=== PATIENT | female | born 1990 | race Caucasian/White ===

== ENCOUNTER 2016-08-24 18:31 | Emergency (ER) | payer OTHER ==
[~2016-08-24] VITALS: Ht 165.1 cm; Wt 67.6 kg
--- NOTE | 2016-08-24 19:14 | ED SKIN/ALLERGY COMPLAINT ---
History of Present Illness General Chief Complaint: Allergy Symptoms Stated Complaint: ANTIBIOTIC REACTION Source: patient Exam Limitations: no limitations Vital Signs & Intake/Output Vital Signs & Intake/Output Vital Signs Date Time Temp Pulse Resp B/P Pulse O2 O2 Flow FiO2 Ox Delivery Rate 08/24 2038 98.0 76 18 98/61 97 08/24 184 97.8 76 18 113/78 96 Room Air Allergies Coded Allergies: sulfamethoxazole (From BACTRIM) (Intermediate, RASH 08/24/16) trimethoprim (From BACTRIM) (Intermediate, RASH 08/24/16) Penicillins (UNKNOWN 08/24/16) Reconcile Medications Famotidine (Pepcid) 20 MG TABLET 1 TAB PO BID ALLERGIC REACTION Prednisone 20 MG TABLET 2 TAB PO D allergic reaction Triage Note: PT STATES THAT SHE WAS DIAGNOSED WITH EAR INFECTION YESTERDAY AND COULD NOT AFFORD Z-PACK , BUT THAT SHE COULD NOT AFFORD THE ABT, PT WENT HOME AND TOOK HER LEFT OVER BACTRIM, USED OTC NASAL SPRAY AND EARACHE DROPS.PT STATES THAT SHE WAS FINE ALL DAY AND THEN AROUND 1500 SHE STARTED TO FEEL ITCHY AND NOTED A FINE RASH ALL OVER HER BODY. DENIES SOB. Triage Nurses Notes Reviewed? yes Onset: Abrupt Duration: since 3 pm Timing: single episode today Severity: moderate Location: extremities Possible Factors: BACTRIM FIRST DOSE Associated Symptoms: ERYTHEMA, ITCHING : No Patient currently breastfeeds: No HPI: 25 year old female who presents with rash to both arms after first dose of bactrim. She was diagnosed with left otitis media and did not want to pay for the azithromycin out of pocked so she decided to to take some bactrim that she had lying at home. No difficulty swallowing or breathing. Past History Travel History Traveled to [place] past 21 day No Medical History Any Pertinent Medical History? 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 No Review of Systems Review of Systems Constitutional: Denies: chills, fever. EENTM: Denies: throat pain. Respiratory: Denies: short of breath. Cardiovascular: Denies: chest pain, palpitations. GI: Reports: no symptoms. Genitourinary: Reports: no symptoms. Musculoskeletal: Reports: no symptoms. Skin: Reports: jaundice, rash. Neurological/Psychological: Reports: no symptoms. Hematologic/Endocrine: Denies: bruising, bleeding, polyuria, polydipsia. Immunologic/Allergic: Denies: splenectomy. All Other Systems: Reviewed and Negative Physical Exam Physical Exam General Appearance: well developed/nourished, awake, mild distress Head: atraumatic Eyes: Bilateral: PERRL, EOMI. Ears, Nose, Throat: normal pharynx, normal ENT inspection, hearing grossly normal Neck: normal inspection, supple Respiratory: normal breath sounds Cardiovascular: regular rate/rhythm Gastrointestinal: soft, non-tender Back: normal inspection Extremities: normal inspection, normal range of motion, no edema Neurologic/Psych: awake, alert, oriented x 3, normal mood/affect Skin: intact, normal color, warm/dry Skin Problem Location: upper extremities Skin Problem Character: erythema, rash Lymphatic: no anterior cervical digna Progress Differential Diagnosis: abscess/cellulitis, allergic reaction Plan of Care: Current Medications Sig/Stacie Start time Last Medication Dose Stop Time Status Admin Diphenhydramine HCl 25 MG ONCE ONE 08/24 1944 UNVr (Benadryl) 08/24 1945 Famotidine 20 MG ONCE ONE 08/24 1944 UNVr (Pepcid) 08/24 1945 Prednisone 60 MG ONCE ONE 08/24 1944 UNVr 08/24 1945 PREDNISONE, BENADRYL, PEPCID ORDERED. 20:40 PATIENT FEELING BETTER. LEFT EAR SOME SOME MILD ERYTHEMA IN THE CANAL, BUT NO VIRGIL EVIDENCE OF LEFT OTITIS MEDIA. (YG MCPHERSON,SPENSER) Departure Departure Time of Disposition: 2040 Disposition: HOME OR SELF CARE Condition: Stable Clinical Impression Primary Impression: Allergic reaction caused by a drug Referrals: LUKE MCPHERSON,ALVARO Ceron (PCP/Family) Additional Instructions: Discontinue the Bactrim. Continue the eardrops as directed. Take the prednisone and Pepcid as directed. Your prescriptions are at your pharmacy. Please follow-up with your doctor in 2-3 days' time. Return to the ER for any changing or worsening symptoms. Departure Forms: Customer Survey General Discharge Information Prescriptions: Current Visit Scripts Prednisone 2 TAB PO D #6 TAB Famotidine (Pepcid) 1 TAB PO BID #10 TAB
[2016-08-24 20:39] VITALS: BP 98/61
[2016-08-24] MEDS ORDERED: PEPCID20 M1 PO (20:42)
[2016-08-24] MEDS ORDERED: PREDNISONE20 M1 PO (20:42)
== END 2016-08-24 21:01 ==
LOC: ERH 18:31
DX: T37.0X5A Adverse effect of sulfonamides, initial encounter (principal)

== ENCOUNTER 2017-06-27 15:58 | Emergency (ER) | payer OTHER ==
[~2017-06-27 15:58] MED LIST: PEPCID20 M1 PO; PREDNISONE20 M1 PO
--- NOTE | 2017-06-27 17:25 | RADIOLOGY REPORT ---
EXAMINATION: RIGHT FOOT AND ANKLE 6 VIEWS CLINICAL INFORMATION: Pain after fall. COMPARISON: None. TECHNIQUE: AP, lateral, oblique views of the right foot were obtained in addition to AP, lateral and oblique views of the right ankle. FINDINGS: There are no fractures or dislocations. There is no significant soft tissue swelling. No ankle joint effusion is identified. IMPRESSION: Unremarkable right foot and ankle radiographs.
--- NOTE | 2017-06-27 17:26 | RADIOLOGY REPORT ---
EXAMINATION: XR ELBOW, RIGHT CLINICAL INFORMATION: Pain after fall COMPARISON: None TECHNIQUE: Four views of the right elbow. FINDINGS: There is no evidence of fracture or dislocation. No evidence of elbow joint effusion. The joint spaces are well-maintained and the cortical surfaces are smooth. The soft tissues appear unremarkable. IMPRESSION: Normal right elbow.
--- NOTE | 2017-06-27 17:44 | ED MVC/FALL/TRAUMA COMPLAINT ---
History of Present Illness General Chief Complaint: Foot or Ankle Injury Stated Complaint: BIBA R ARM/R ANKLE IMJURY Source: patient, friend Exam Limitations: no limitations Vital Signs & Intake/Output Vital Signs & Intake/Output Vital Signs Date Time Temp Pulse Resp B/P B/P Pulse O2 O2 Flow FiO2 Mean Ox Delivery Rate 06/27 1753 98.3 69 20 126/61 98 06/27 1606 88 20 115/80 97 ED Intake and Output 06/28 0000 06/27 1200 Intake Total 0 Output Total Balance 0 Intake, Oral 0 Allergies Coded Allergies: sulfamethoxazole (From BACTRIM) (Intermediate, RASH 08/24/16) trimethoprim (From BACTRIM) (Intermediate, RASH 08/24/16) Penicillins (UNKNOWN 08/24/16) Reconcile Medications Famotidine (Pepcid) 20 MG TABLET 1 TAB PO BID ALLERGIC REACTION Ibuprofen 800 MG TABLET 1 TAB PO TID PRN PAIN Methocarbamol (Robaxin-750) 750 MG TABLET 1 TAB PO TID PRN PAIN Prednisone 20 MG TABLET 2 TAB PO D allergic reaction Triage Note: PER PT SLIPPED AND FELL IN PUDDLE WHILE ON CELL PHONE CO PAIN TO RT ANKLE AND FOOT AND RT ELBOW PAIN LMP 06/19. CO TINGLING TO RT 5TH DIGIT, NO LOC Triage Nurses Notes Reviewed? yes Onset: Abrupt Duration: hour(s): (1), constant, continues in ED Timing: single episode today Severity: moderate, severe Severity Numbers: 8 Injuries/Fall Location: upper extremity, lower extremity Method of Injury: fall Loss of Consciousness: no loss of consciousness No Modifying Factors: none LMP (ages 10-50): unknown : No Patient currently breastfeeds: No HPI: 26-year-old female with no past medical history present for evaluation after a fall. Patient's history was walking looking at her cell phone when she accidentally walked into a puddle slipped and fell. Patient states that she landed on her right elbow and twisted her right ankle. There is no head strike or loss of consciousness. No hip pain and knee pain back pain or neck pain. She states that she was able to stand up with help and walk with a limp. The pain is located in the lateral aspect of the foot and ankle and is worse with weightbearing and movement. She rates pain as needed attention not taking any medicine. She also reports pain in the right elbow that is worse with movement. No wrist pain or shoulder pain. She does report some tingling in the right fifth finger. No chest pain or abdominal pain. No other injuries. No blood thinners. Past History Travel History Traveled to [place] past 21 day No Medical History Any Pertinent Medical History? 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 No Review of Systems Review of Systems Constitutional: Reports: no symptoms. Eyes: Reports: no symptoms. Ears, Nose, Throat, Mouth: Reports: no symptoms. Respiratory: Reports: no symptoms. Cardiovascular: Reports: no symptoms. Gastrointestinal/Abdominal: Reports: no symptoms. Genitourinary: Reports: no symptoms. Musculoskeletal: Reports: see HPI, joint pain, muscle pain, muscle stiffness. Skin: Reports: no symptoms. Neurological/Psychological: Reports: no symptoms. All Other Systems: Reviewed and Negative Physical Exam Physical Exam General Appearance: well developed/nourished, no apparent distress, alert, awake Head: atraumatic, normal appearance Eyes: Bilateral: normal appearance, PERRL, EOMI, normal inspection. Ears, Nose, Throat, Mouth: hearing grossly normal, moist mucous membrane Neck: normal inspection, supple, full range of motion, no midline tenderness Respiratory: normal breath sounds, chest non-tender, no respiratory distress, lungs clear Cardiovascular: regular rate/rhythm, normal peripheral pulses Peripheral Pulses: 2+ radial (R), 2+ radial (L), 2+ dorsalis pedis (R), 2+ dorsalis pedis (L) Gastrointestinal: soft, non-tender Back: normal inspection, normal range of motion, no vertebral tenderness, LUMBAR PARASPINOUS MUSCLES TENDER TO PALPATION BILATERALLY. nO MIDLINE PAIN NO STEP- OFFS OR DEFORMITIES NOTED BRUISING SWELLING OR ABRASIONS Extremities: PAIN WITH PALPATION OF THE OLECRANON PROCESS ON THE RIGHT SIDE. nO BRUISING SWELLING OR ABRASIONS. nO CREPITUS. rANGE OF MOTION OF THE ELBOW IS REDUCED DUE TO PAIN.RANGE OF MOTION OF THE RIGHT SHOULDER AND RIGHT WRIST. nO SNUFFBOX TENDERNESS. char filter tank tender head STRENGTH 5 OUT OF 5 NEUROVASCULAR SUPPLY IS INTACT TO THE RIGHT UPPER EXTREMITY pAIN WITH PALPATION OF THE RIGHT LATERAL MALLEOLUS AND RIGHT FIFTH METATARSAL. nO BRUISING SWELLING OR ABRASIONS RANGE OF MOTION OF THE FOOT AND ANKLE REDUCED DUE TO PAIN. nEUROVASCULAR SUPPLY IS INTACT. FULL RANGE OF MOTION OF THE BILATERAL HIPS AND KNEES. pATIENT IS ABLE TO WALK WITH A LIMP ON THE RIGHT SIDE. Neurologic/Psych: no motor/sensory deficits, awake, alert, oriented x 3 Skin: intact, normal color, warm/dry Core Measures ACS in differential dx? No CVA/TIA Diagnosis No Sepsis Present: No Sepsis Focused Exam Completed? No Progress Differential Diagnosis: ext injury, FRACTURE, CONTUSION, SPRAIN Plan of Care: Orders Procedure Date/time Status Durable Medical Equipment 06/27 1743 Active Patient seen and evaluated. She had a mechanical fall landing on the right elbow and twisting her right ankle. X-rays are negative for fracture. Neurovascular supply is intact. No evidence of major trauma on exam. Patient is moving all extremities. Abdomen is soft and nontender. No midline tenderness of the cervical thoracic or lumbar spine. There was no head strike or loss of consciousness. Full range of motion of the bilateral hips without pain. Patient will be given a right shoulder immobilizer. Benjamín wrap was applied to the right foot and ankle. Advised rest ice elevation compression. Patient was not given crutches because she does not like she can handle them with her right elbow pain. Advised to follow-up with her primary care doctor. Tylenol or ibuprofen Robaxin as needed. Discussed return precautions patient is nontoxic-appearing and agrees with plan. Diagnostic Imaging: Viewed by Me: Radiology Read. Discussed w/RAD: Radiology Read. Radiology Impression: PATIENT: KRISTAN TAVARES PRESENT AGE: 26 PATIENT ACCOUNT NO: [id number] : 92 LOCATION: [facility] ORDERING PHYSICIAN: Jelani Almendarez MD SERVICE DATE: 06/27/17 EXAM TYPE: RAD - XRY-ANKLE 3 OR MORE VIEWS R; XRY-FOOT COMPLETE, R EXAMINATION: RIGHT FOOT AND ANKLE 6 VIEWS CLINICAL INFORMATION: Pain after fall. COMPARISON: None. TECHNIQUE : AP, lateral, oblique views of the right foot were obtained in addition to AP, lateral and oblique views of the right ankle. FINDINGS: There are no fractures or dislocations. There is no significant soft tissue swelling. No ankle joint effusion is identified. IMPRESSION: Unremarkable right foot and ankle radiographs. DICTATED BY: Ulises De Leon MD DATE/TIME DICTATED:06/27/171720 CENTRAL OFFICE FRAME WIRER:JENNA DATE/TIME TRANSCRIBED:06/27/171720 CONFIDENTIAL, DO NOT COPY WITHOUT APPROPRIATE AUTHORIZATION., PATIENT: KRISTAN TAVARES PRESENT AGE: 26 PATIENT ACCOUNT NO: [id number] : 92 LOCATION: [facility] ORDERING PHYSICIAN: Jelani Almendarez MD SERVICE DATE: 06/27/171606 EXAM TYPE: RAD - XRY-ELBOW 3 OR MORE VIEWS, R EXAMINATION: XR ELBOW, RIGHT CLINICAL INFORMATION: Pain after fall COMPARISON: None TECHNIQUE: Four views of the right elbow. FINDINGS: There is no evidence of fracture or dislocation. No evidence of elbow joint effusion. The joint spaces are well-maintained and the cortical surfaces are smooth. The soft tissues appear unremarkable. IMPRESSION: Normal right elbow. DICTATED BY: Paul Marcial MD DATE/TIME DICTATED:06/27/171721 CENTRAL OFFICE FRAME WIRER:JENNA DATE/TIME TRANSCRIBED:06/27/171721 CONFIDENTIAL, DO NOT COPY WITHOUT APPROPRIATE AUTHORIZATION. Departure Departure Disposition: HOME OR SELF CARE Condition: Stable Clinical Impression Primary Impression: Ankle sprain Qualifiers: Encounter type: initial encounter Involved ligament of ankle: unspecified ligament Laterality: right Qualified Code: S93.401A - Sprain of unspecified ligament of right ankle, initial encounter Secondary Impressions: Right elbow pain Referrals: Luis MCPHERSON,Jewel Ceron (PCP/Family) Additional Instructions: Rest, avoid heavy lifting bending or excessive physical activity. Apply ice for 15-20 minutes every few hours. Use Tylenol and ibuprofen as needed for pain. Robaxin as a muscle relaxer that can use every 8 hours as needed for pain. Keep YOUR ankle elevated and avoid excessive weightbearing and walking. Take a follow-up appointment with her primary care doctor for this week. Monitor symptoms return to the emergency department with any concerns. Departure Forms: Customer Survey General Discharge Information Prescriptions: Current Visit Scripts Ibuprofen 1 TAB PO TID PRN PAIN #30 TAB Methocarbamol (Robaxin-750) 1 TAB PO TID PRN PAIN #30 TAB
[2017-06-27] MEDS ORDERED: IBUPROFEN800 M1 PO (17:46)
[2017-06-27] MEDS ORDERED: ROBAXIN-750750 M1 PO (17:46)
[2017-06-27 17:53] VITALS: BP 126/61
== END 2017-06-27 18:06 ==
LOC: ERH 15:58
DX: S93.401A Sprain of unspecified ligament of right ankle, initial encounter (principal); M25.521 Pain in right elbow; W01.0XXA Fall on same level from slipping, tripping and stumbling without subsequent striking against object, initial encounter; Y92.9 Unspecified place or not applicable; Y93.9 Activity, unspecified
CPT/HCPCS: 73080-RT; 73610-RT; 73630-RT

== ENCOUNTER 2017-07-01 13:53 | Emergency (ER) | payer OTHER ==
[~2017-07-01] VITALS: Ht 165.1 cm; Wt 68.0 kg
[~2017-07-01 13:53] MED LIST changes: +IBUPROFEN800 M1 PO; +ROBAXIN-750750 M1 PO
--- NOTE | 2017-07-01 14:51 | ED UPPER/LOWER EXTREMITY COMPL ---
History of Present Illness General Chief Complaint: General Adult Stated Complaint: R ARM PAIN Source: patient, family, old records Exam Limitations: no limitations Vital Signs & Intake/Output Vital Signs & Intake/Output Vital Signs Date Time Temp Pulse Resp B/P B/P Pulse O2 O2 Flow FiO2 Mean Ox Delivery Rate 07/01 1438 97.5 70 18 108/70 99 Room Air Allergies Coded Allergies: sulfamethoxazole (From BACTRIM) (Intermediate, RASH, DYSPHAGIA 07/01/17) trimethoprim (From BACTRIM) (Intermediate, RASH, DYSPHAGIA 07/01/17) Penicillins (FACIAL SWELLING 07/01/17) Reconcile Medications Cyclobenzaprine HCl 10 MG TABLET 1 TAB PO QPM PRN muscle strain Ibuprofen 800 MG TABLET 1 TAB PO TID PRN PAIN Meloxicam (Mobic) 15 MG TABLET 1 TAB PO DAILY PRN pain Methocarbamol (Robaxin-750) 750 MG TABLET 1 TAB PO TID PRN PAIN Triage Note: PT TO ED FOR ELBOW PAIN, BACK PAIN AND ANKLE PAIN, WAS SEEN IN ED A FEW DAYS AGO AFTER A SLIP AND FALL, PT RETURNS "BECAUSE I'M STILL IN PAIN". DECLINES MEDS IN TRIAGE. Triage Nurses Notes Reviewed? yes Onset: Gradual Duration: day(s): Timing: recent history Severity: moderate Pain/Injury Location: Right: Elbow, Ankle. Method of Injury: fall LMP (ages 10-50): TUBAL LIGATION : No Patient currently breastfeeds: No HPI: 26-year-old female presents emergency department complaining of persistent pain in right elbow, right ankle, low back and buttocks after a fall a few days ago. Patient states that she was seen and evaluated here the day of the fall. X-rays obtained were negative at that time, she was started on ibuprofen and Robaxin. Patient states that despite these medications her symptoms are persistent. Patient does not believe she can complete her day-to-day activities due to significant pain. Patient denies head trauma during the fall. She denies numbness, tingling, bruising, bleeding, repeat fall or trauma. (Hellen BEASLEY,Krista Sepulveda) Past History Travel History Traveled to [place] past 21 day No Medical History Any Pertinent Medical History? none Neurological: NONE EENT: NONE Cardiovascular: NONE Respiratory: NONE Gastrointestinal: NONE Hepatic: NONE Renal: NONE Musculoskeletal: NONE Psychiatric: NONE Endocrine: NONE Blood Disorders: NONE Cancer(s): NONE SPACE AND MISSILE OPERATIONS SPACELIFT/Reproductive: NONE Surgical History Surgical History: non-contributory Psychosocial History What is your primary language Czech Tobacco Use: Never used ETOH Use: denies use Illicit Drug Use: denies illicit drug use Family History Hx Contributory? No (Krista Macdonald) Review of Systems Review of Systems Constitutional: Reports: no symptoms. EENTM: Reports: no symptoms. Respiratory: Reports: no symptoms. Cardiovascular: Reports: no symptoms. Gastrointestinal/Abdominal: Reports: no symptoms. Genitourinary: Reports: no symptoms. Musculoskeletal: Reports: see HPI. Skin: Reports: no symptoms. Neurological/Psychological: Reports: no symptoms. Hematologic/Endocrine: Reports: no symptoms. Immunological: Reports: no symptoms. All Other Systems: Reviewed and Negative (Krista Macdonald) Physical Exam Physical Exam General Appearance: well developed/nourished, no apparent distress, alert, awake Head: atraumatic, normal appearance Eyes: Bilateral: normal appearance. Ears, Nose, Throat: hearing grossly normal Neck: normal inspection, supple, full range of motion, no midline tenderness Cardiovascular/Respiratory: normal peripheral pulses, no respiratory distress Peripheral Pulses: 2+ radial (R), 2+ radial (L), 2+ dorsalis pedis (R) Back: normal inspection, normal range of motion, bilateral lower back tenderness without ecchymosis Shoulder Left: normal range of motion, normal inspection Shoulder Right: normal range of motion, normal inspection Elbow Left: normal range of motion, normal inspection Elbow Right: tenderness to posterior elbow without swelling or ecchymosis Hand Left: normal inspection, normal range of motion Hand Right: normal inspection, normal range of motion Leg Left: normal range of motion, normal inspection Leg Right: normal range of motion, normal inspection Hip Left: normal range of motion, normal inspection, tenderness to lateral hip Hip Right: normal range of motion, normal inspection, tenderness to lateral hip Knee Left: normal range of motion, normal inspection Knee Right: normal range of motion, normal inspection, nontender Foot Left: normal inspection, normal range of motion Foot Right: lateral malleolar tenderness without swelling or ecchymosis Neurologic/Tendon: normal sensation, normal motor functions, normal tendon functions Skin: intact, normal color, warm/dry (Krista Macdonald) Progress Differential Diagnosis: arterial insufficiency, compartment syndrome, contusion, fracture, sprain, tendon injury Plan of Care: Orders Procedure Date/time Status XRY-SACRUM AND COCCYX 07/01 1506 Active XRY-AP PELVIS 07/01 1506 Active XRY-ELBOW 3 OR MORE VIEWS, R 07/01 1506 Active XRY-TWO VIEW RIGHT ANKLE 07/01 1506 Active Old charts reviewed, previous x-rays reviewed. Patient's pain is persistent, tenderness on physical exam, will obtain repeat x-rays to assess for possible missed fracture. X-rays without acute abnormality. Patient prescribed meloxicam and Flexeril to take for her pain, she will discontinue ibuprofen and Robaxin. Patient instructed on RICE therapy. She was given orthopedic to follow-up with if her symptoms are persistent. The patient agrees with the plan of care. Diagnostic Imaging: Viewed by Me: Radiology Read. Discussed w/RAD: Radiology Read. Radiology Impression: PATIENT: KRISTAN TAVARES PRESENT AGE: 26 PATIENT ACCOUNT NO: [id number] : 92 LOCATION: [facility] ORDERING PHYSICIAN: Krista BEASLEY SERVICE DATE: 07/01/17 EXAM TYPE: RAD - XRY-AP PELVIS; XRY-SACRUM AND COCCYX EXAMINATION: XR PELVIS XR SACRUM AND COCCYX CLINICAL INFORMATION: Status post fall a few days ago with worsening pain COMPARISON: None TECHNIQUE: Pelvis, AP view Sacrum and coccyx, 3 views FINDINGS: Pelvis: Osseous pelvic ring is intact and bones have normal alignment. Femoroacetabular joints are normal. No evidence of acetabular injury or proximal femoral fracture. Sacrum and coccyx: Sacrum and sacroiliac joints are unremarkable. On the lateral view, there is a hyperangulated appearance of the coccyx, but this can represent normal variation (i.e., a type 4 coccyx). There are no fracture lucency is identified within the sacrum or coccyx. Also, there is no gross soft tissue swelling in the pericoccygeal region. IMPRESSION: 1. No acute radiographic findings in the pelvis or hips. 2. The hyperangulated appearance of the coccyx is within the spectrum of normal variation. This likely represents a type 4 coccyx. No acute fractures are seen. DICTATED BY: Evan Bee MD DATE/TIME DICTATED:07/01/171628 TELECOMMUNICATIONS ADMINISTRATOR:RAD.LOYOLA DATE/TIME TRANSCRIBED:07/01/171628 CONFIDENTIAL, DO NOT COPY WITHOUT APPROPRIATE AUTHORIZATION. <Electronically signed in Other Vendor System> SIGNED BY: Evan Bee MD 07/01/171638, PATIENT: KRISTAN TAVARES PRESENT AGE: 26 PATIENT ACCOUNT NO: [id number] : 92 LOCATION: ER ORDERING PHYSICIAN: Krista BEASLEY SERVICE DATE: 07/01/17 EXAM TYPE: RAD - XRY-ELBOW 3 OR MORE VIEWS, R EXAMINATION: XR ELBOW, RIGHT CLINICAL INFORMATION: Fall a few days ago. Elbow pain. COMPARISON: 06/27/2017 TECHNIQUE: AP, lateral, and oblique views of the right elbow. FINDINGS: The bones and soft tissues are normal. No fracture or joint effusion. Alignment is anatomic. Joint spaces are maintained. IMPRESSION: Normal right elbow. No interval change. DICTATED BY: Samia Hernandez MD DATE/TIME DICTATED:07/01/171627 TELECOMMUNICATIONS ADMINISTRATOR :LOYOLA DATE/TIME TRANSCRIBED:07/01/171627 CONFIDENTIAL, DO NOT COPY WITHOUT APPROPRIATE AUTHORIZATION. <Electronically signed in Other Vendor System> SIGNED BY: Samia Hernandez MD 07/01/171631, PATIENT: KRISTAN TAVARES PRESENT AGE: 26 PATIENT ACCOUNT NO: [id number] : LOCATION: [facility] ORDERING PHYSICIAN: Krista BEASLEY SERVICE DATE: 07/01/17 EXAM TYPE: RAD - XRY-TWO VIEW RIGHT ANKLE EXAMINATION: XR ANKLE, RIGHT CLINICAL INFORMATION: Fall several days ago. Worsening pain. Evaluate for fracture. COMPARISON: Left foot and ankle x-ray 06/27/2017 TECHNIQUE: AP and lateral views of the right ankle. FINDINGS: Bone alignment is normal. No fracture or dislocation is seen. The ankle mortise is normal. There is a stable sclerotic density in the calcaneus probably representing a bone island. IMPRESSION: Unremarkable right ankle. DICTATED BY: Briana Kuo MD DATE/TIME DICTATED:07/01/171625 TELECOMMUNICATIONS ADMINISTRATOR:LOYOLA DATE/TIME TRANSCRIBED:1625 CONFIDENTIAL, DO NOT COPY WITHOUT APPROPRIATE AUTHORIZATION. < Electronically signed in Other Vendor System> SIGNED BY: Briana Kuo MD 07/01/17 [id number] (Hellen BEASLEY,Krista Sepulveda) Departure Departure Disposition: HOME OR SELF CARE Condition: Stable Clinical Impression Primary Impression: Fall Qualifiers: Encounter type: subsequent encounter Qualified Code: W19.XXXD - Unspecified fall, subsequent encounter Secondary Impressions: Ankle sprain Qualifiers: Encounter type: subsequent encounter Involved ligament of ankle: unspecified ligament Laterality: right Qualified Code: S93.401D - Sprain of unspecified ligament of right ankle, subsequent encounter Back pain Qualifiers: Back pain location: low back pain Chronicity: acute Back pain laterality: bilateral Sciatica presence: without sciatica Qualified Code: M54.5 - Low back pain Elbow strain Qualifiers: Encounter type: initial encounter Laterality: right Qualified Code: S56.911A - Strain of unspecified muscles, fascia and tendons at forearm level, right arm, initial encounter Referrals: Jewel Smith MD (PCP/Family) Additional Instructions: Discontinue Robaxin and begin Flexeril muscle relaxer to take as needed for muscle spasm. This medication may cause drowsiness, take this medication at night. Take meloxicam once daily with breakfast. He may take Tylenol 500-1000 mg every 6 hours as needed for additional pain control. Rest, apply ice, use Benjamín wrap for compression. If your symptoms are persistent please follow-up with your primary care doctor orthopedic referred to today. Return to the emergency Department with any worsening symptoms or other concerns. Please note that there might be incidental findings in your evaluation that are unrelated to the current emergency department visit. Please notify your primary care doctor about this emergency department visit in order to obtain and review all of the testing performed so that these incidental findings can be monitored as needed. If you had an x-ray performed, please understand that some fractures may not be seen on the initial set of x-rays. If your symptoms persist you might need a repeat set of x-rays to check for such a fracture. If you had a laceration evaluated, please understand that foreign bodies such as glass or wood may not be visible to the naked eye or on plain x-rays. If the wound becomes red, swollen, increasingly more painful or if there is any drainage from the wound, please have it reevaluated by a physician for the possibility of a retained foreign body. If you're unable to follow up as outlined in the discharge instructions please return to the emergency department. Thank you for choosing the [facility] Emergency Department for your care. It was a pleasure to serve you today. Departure Forms: Customer Survey General Discharge Information Prescriptions: Current Visit Scripts Cyclobenzaprine HCl 1 TAB PO QPM PRN muscle strain #10 TAB Meloxicam (Mobic) 1 TAB PO DAILY PRN pain #15 TAB (Hellen BEASLEY,Krista Sepulveda) PA/SWATCH PASTER Co-Sign Statement Statement: ED Attending supervision documentation- I saw and evaluated the patient. I have also reviewed all the pertinent lab results and diagnostic results. I agree with the findings and the plan of care as documented in the PA's/SWATCH PASTER's documentation. x I have reviewed the ED Record and agree with the PA's/SWATCH PASTER's documentation. [] Additions or exceptions (if any) to the PAs/SWATCH PASTER's note and plan are summarized below: [] (Jin MCPHERSON,Bharat)
--- NOTE | 2017-07-01 16:32 | RADIOLOGY REPORT ---
EXAMINATION: XR ELBOW, RIGHT CLINICAL INFORMATION: Fall a few days ago. Elbow pain. COMPARISON: 06/27/2017 TECHNIQUE: AP, lateral, and oblique views of the right elbow. FINDINGS: The bones and soft tissues are normal. No fracture or joint effusion. Alignment is anatomic. Joint spaces are maintained. IMPRESSION: Normal right elbow. No interval change.
--- NOTE | 2017-07-01 16:39 | RADIOLOGY REPORT ---
EXAMINATION: XR PELVIS XR SACRUM AND COCCYX CLINICAL INFORMATION: Status post fall a few days ago with worsening pain COMPARISON: None TECHNIQUE: Pelvis, AP view Sacrum and coccyx, 3 views FINDINGS: Pelvis: Osseous pelvic ring is intact and bones have normal alignment. Femoroacetabular joints are normal. No evidence of acetabular injury or proximal femoral fracture. Sacrum and coccyx: Sacrum and sacroiliac joints are unremarkable. On the lateral view, there is a hyperangulated appearance of the coccyx, but this can represent normal variation (i.e., a type 4 coccyx). There are no fracture lucency is identified within the sacrum or coccyx. Also, there is no gross soft tissue swelling in the pericoccygeal region. IMPRESSION: 1. No acute radiographic findings in the pelvis or hips. 2. The hyperangulated appearance of the coccyx is within the spectrum of normal variation. This likely represents a type 4 coccyx. No acute fractures are seen.
--- NOTE | 2017-07-01 16:43 | RADIOLOGY REPORT ---
EXAMINATION: XR ANKLE, RIGHT CLINICAL INFORMATION: Fall several days ago. Worsening pain. Evaluate for fracture. COMPARISON: Left foot and ankle x-ray 06/27/2017 TECHNIQUE: AP and lateral views of the right ankle. FINDINGS: Bone alignment is normal. No fracture or dislocation is seen. The ankle mortise is normal. There is a stable sclerotic density in the calcaneus probably representing a bone island. IMPRESSION: Unremarkable right ankle.
[2017-07-01] MEDS ORDERED: CYCLOBENZAPRINE10 M1 PO (17:08)
[2017-07-01] MEDS ORDERED: MOBIC15 M1 PO (17:08)
[2017-07-01 17:11] VITALS: BP 114/58
== END 2017-07-01 17:20 ==
LOC: ERH 13:53
DX: S93.401A Sprain of unspecified ligament of right ankle, initial encounter (principal); S56.911A Strain of unspecified muscles, fascia and tendons at forearm level, right arm, initial encounter; M54.5 Low back pain; W19.XXXD Unspecified fall, subsequent encounter; Y93.9 Activity, unspecified; Y92.9 Unspecified place or not applicable
CPT/HCPCS: 72170; 72220; 73080-RT; 73600-RT